=== PATIENT | male | born 1960 | race Caucasian/White ===

== ENCOUNTER 2023-07-12 08:34 | Outpatient (CLI) | payer OTHER ==
[2023-07-12] MEDS ORDERED: Iopamidol 300 61% 100 ML VIAL FS ONE (09:18)
[2023-07-12] MEDS ORDERED: Magnevist 469MG/ML 20 ML VIAL ONE (09:22)
== END 2023-07-12 08:35 | disposition home or self-care (01) ==
LOC: CSHCT 08:34
PROVIDERS: ATTEND Internal Medicine
DX: C49.22 Malignant neoplasm of connective and soft tissue of left lower limb, including hip (principal); C49.9 Malignant neoplasm of connective and soft tissue, unspecified; Z98.890 Other specified postprocedural states; C79.51 Secondary malignant neoplasm of bone; R91.8 Other nonspecific abnormal finding of lung field; J90 Pleural effusion, not elsewhere classified; E27.8 Other specified disorders of adrenal gland; K76.89 Other specified diseases of liver
CPT/HCPCS: 71260; 74177